=== PATIENT | female | born 1960 | race Hispanic/Latino ===

== ENCOUNTER 2019-11-08 13:10 | Emergency (ER) | payer SELFPAY ==
[2019-11-08] MEDS ORDERED: LEVALBUTEROL 1.25 MG/3 ML NEB ONE (14:51)
[2019-11-08] MEDS ORDERED: predniSONE 20 MG TAB ONE (14:51)
[2019-11-08] MEDS ORDERED: IBUPROFEN 400 MG TAB ONE (14:51)
[2019-11-08] MEDS ORDERED: IBUPROFEN 200 MG TAB PO ONE (14:51)
[2019-11-08] MEDS ORDERED: FAMOTIDINE 20 MG TAB ONE (14:52)
--- NOTE | 2019-11-08 15:13 | RAD REPORT ---
EXAM DESCRIPTION: RAD - Chest Single View - 11/08/2019 2:53 pm CLINICAL HISTORY: COPD;Cough COMPARISON: No comparisons TECHNIQUE: AP portable chest image was obtained 11/08/2019 2:53 pm . FINDINGS: Lungs are clear. Heart and vasculature are normal. No measurable pleural effusion and no p neumothorax. No acute bony abnormality seen. No acute aortic findings suspected. IMPRESSION: No acute cardiopulmonary process.
--- NOTE | 2019-11-08 16:57 | ER ---
Nurse's Notes [facility] Name: Jelena Schaeffer Age: 59 yrs Sex: Female : 1960 Arrival Date: 11/08/2019 Time: 13:13 Bed 19 Private MD: Diagnosis: Viral infection, unspecified;COPD Exacerbation;Cough Presentation: 11/07 13:26 Chief complaint: Patient states: Cough, congestion, sore throat, chest pain from jl7 coughing, MANTILLA and body aches x 2 days, fiance tested positive for the flu 2 days ago. Coronavirus screen: The patient has NOT traveled to a country currently being monitored by the [facility] within the last 14 days. Proceed with normal triage procedures. The patient has NOT had contact with any known and/or suspected case of coronavirus. Proceed with normal triage procedures. Ebola Screen: No symptoms or risks identified at this time. Initial Sepsis Screen: Does the patient meet any 2 criteria? HR > 90 bpm. No. Patient's initial sepsis screen is negative. Does the patient have a suspected source of infection? No. Patient's initial sepsis screen is negative. Risk Assessment: Do you want to hurt yourself or someone else? Patient reports no desire to harm self or others. Onset of symptoms was November 06, 2019. Care prior to arrival: None. 13:26 Method Of Arrival: Ambulatory [facility] 13:26 Acuity: ROBERTH 4 jl7 Triage Assessment: 13:31 General: Appears in no apparent distress. uncomfortable, Behavior is cooperative, jl7 anxious. Pain: Complains of pain in MANTILLA, whole body, sore throat Pain currently is 10 out of 10 on a pain scale. Quality of pain is described as aching. Neuro: Level of Consciousness is awake, alert, obeys commands, Oriented to person, place, time, situation. Cardiovascular: Patient's skin is warm and dry. Respiratory: Airway is patent Respiratory effort is even, unlabored, Respiratory pattern is regular, symmetrical. Derm: Skin is pink, warm \\T\\ dry. Historical: - Allergies: 13:31 Morphine; jl7 - Home Meds: 13:31 montelukast oral oral [Active]; Combivent Inhl [Active]; Albuterol Inhl [Active]; jl7 - PMHx: 13:31 COPD; jl7 - PSHx: 13:31 Appendectomy; Hysterectomy; jl7 - Immunization history:: Adult Immunizations not up to date. - Social history:: Smoking status: Patient denies any tobacco usage or history of. Screenin:40 Abuse screen: Denies threats or abuse. Nutritional screening: No deficits noted. rb1 Tuberculosis screening: No symptoms or risk factors identified. Fall Risk None identified. Assessment: 13:40 General: Appears uncomfortable, Behavior is anxious, Reports chills for fever for rb1 feeling ill for fatigue for. Pain: Complains of pain in head and bodyaches Pain does not radiate. Pain currently is 10 out of 10 on a pain scale. Quality of pain is described as aching. Neuro: Level of Consciousness is awake, alert, obeys commands, Oriented to person, place, time, situation, Reports headache. Cardiovascular: Capillary refill < 3 seconds is brisk in bilateral fingers. Respiratory: Reports shortness of breath cough that is pain with cough Airway is patent Respiratory effort is even, unlabored, Respiratory pattern is regular, symmetrical. GI: Reports nausea. : No signs and/or symptoms were reported regarding the genitourinary system. EENT: Reports pain when swallowing. Derm: Skin is pink, warm \\T\\ dry. 14:40 Reassessment: Patient appears in no apparent distress at this time. No changes from rb1 previously documented assessment. 15:38 Reassessment: Patient appears in no apparent distress at this time. Patient and/or rb1 family updated on plan of care and expected duration. Pain level reassessed. Patient is alert, oriented x 3, equal unlabored respirations, skin warm/dry/pink. 16:35 Reassessment: Patient appears in no apparent distress at this time. No changes from rb1 previously documented assessment. 17:28 Reassessment: When I went to discharge the pt. she requested Xopenex instead of rb1 Albuterol because she stated, "the Albuterol isn't working." Dr. España notified. Discharge pending due to waiting for Dr. España writing a different prescription. Vital Signs: 13:26 BP 142 / 84; Pulse 105; Resp 19; Temp 98.4; Pulse Ox 96% ; Weight 68.04 kg; Height 5 jl7 ft. 3 in. (160.02 cm); Pain 10/10; 14:01 BP 136 / 74; Pulse 86; Resp 18; Temp 99.2(TE); Pulse Ox 97% on R/A; mh5 15:00 BP 146 / 89; Pulse 81; Resp 19; Pulse Ox 100% on R/A; rb1 16:00 BP 132 / 77; Pulse 97; Resp 17; Pulse Ox 100% ; rb1 16:52 BP 114 / 76; Pulse 94; Resp 16; Temp 98.6(TE); Pulse Ox 96% ; mh5 17:40 BP 128 / 81; Pulse 87; Resp 17; Pulse Ox 99% on R/A; rb1 13:26 Body Mass Index 26.57 (68.04 kg, 160.02 cm) jl7 ED Course: 13:13 Patient arrived in ED. ag5 13:28 Igor España MD is Attending Physician. kdr 13:29 Triage completed. jl7 13:31 Arm band placed on right wrist. jl7 13:38 Chloe Flores, RN is Primary Nurse. rb1 13:40 Patient maintains SpO2 saturation greater than 95% on room air. rb1 14:03 Patient has correct armband on for positive identification. Bed in low position. Call [facility] light in reach. Side rails up X 1. Pulse ox on. NIBP on. 18:00 No provider procedures requiring assistance completed. Patient did not have IV access rb1 during this emergency room visit. Administered Medications: 14:42 Drug: Xopenex (3) 1.25 mg Route: Inhalation; rb1 14:42 Drug: predniSONE 60 mg Route: PO; rb1 15:10 Follow up: Response: No adverse reaction rb1 14:42 Drug: Pepcid 20 mg Route: PO; rb1 15:10 Follow up: Response: No adverse reaction rb1 14:42 Drug: Motrin 600 mg Route: PO; rb1 15:10 Follow up: Response: No adverse reaction rb1 Outcome: 16:56 Discharge ordered by . kdr 18:00 Patient left the ED. rb1 18:00 Discharged to home ambulatory. rb1 18:00 Condition: stable 18:00 Discharge instructions given to Signatures: Igor España MD MD kdr Chloe Flores, RN RN rb1 Ana Lentz [facility] Danyell Myrick RN RN 7 Karen Nieto 5 Corrections: (The following items were deleted from the chart) 18:13 18:11 Patient left the ED. rb1 rb1
--- NOTE | 2019-11-08 16:58 | EDPHYS ---
Physician Documentation [facility] Name: Jelena Schaeffer Age: 59 yrs Sex: Female : 1960 Arrival Date: 11/08/2019 Time: 13:13 Bed 19 Private MD: ED Physician Igor España HPI: 11/08 07:24 This 59 yrs old Female presents to ER via Ambulatory with complaints of Cough, kdr Chest Pain, Asthma Exacerbation. 07:24 The patient or guardian reports cough, that is intermittent, described as moderate, kdr difficulty breathing, flu symptoms, arthralgias, low-grade fever, myalgias, no appetite, hoarse voice. Onset: The symptoms/episode began/occurred gradually, 2 day(s) ago. Severity of symptoms: At their worst the symptoms were mild, in the emergency department the symptoms are unchanged. Modifying factors: The symptoms are alleviated by nothing, the symptoms are aggravated by talking. Associated signs and symptoms: Pertinent positives: chest pain, with cough, fever. The patient has not experienced similar symptoms in the past. The patient has not recently seen a physician. The patient is concerned about her possible exposure to the Flu a few days ago. Historical: - Allergies: 11/07 13:31 Morphine; jl7 - Home Meds: 13:31 montelukast oral oral [Active]; Combivent Inhl [Active]; Albuterol Inhl [Active]; jl7 - PMHx: 13:31 COPD; jl7 - PSHx: 13:31 Appendectomy; Hysterectomy; jl7 - Immunization history:: Adult Immunizations not up to date. - Social history:: Smoking status: Patient denies any tobacco usage or history of. ROS: 11/08 07:24 Constitutional: Negative for fever, chills, and weight loss, Eyes: Negative for injury, kdr pain, redness, and discharge, ENT: Negative for injury, pain, and discharge, Neck: Negative for injury, pain, and swelling, Cardiovascular: Negative for chest pain, palpitations, and edema, Abdomen/GI: Negative for abdominal pain, nausea, vomiting, diarrhea, and constipation, Back: Negative for injury and pain, : Negative for injury, bleeding, discharge, and swelling, MS/Extremity: Negative for injury and deformity, Skin: Negative for injury, rash, and discoloration, Neuro: Negative for headache, weakness, numbness, tingling, and seizure activity. Psych: Negative for depression, anxiety, suicide ideation, homicidal ideation, and hallucinations, Allergy/Immunology: Negative for hives, rash, and allergies, Endocrine: Negative for neck swelling, polydipsia, polyuria, polyphagia, and marked weight changes, Hematologic/Lymphatic: Negative for swollen nodes, abnormal bleeding, and unusual bruising. Respiratory: Positive for cough, with no reported sputum, wheezing, Negative for dyspnea on exertion, hemoptysis, orthopnea, pleurisy, sputum production. Exam: 07:24 Constitutional: This is a well developed, well nourished patient who is awake, alert, kdr and in no acute distress. Head/Face: Normocephalic, atraumatic. Eyes: Pupils equal round and reactive to light, extra-ocular motions intact. Lids and lashes normal. Conjunctiva and sclera are non-icteric and not injected. Cornea within normal limits. Periorbital areas with no swelling, redness, or edema. Neck: Trachea midline, no thyromegaly or masses palpated, and no cervical lymphadenopathy. Supple, full range of motion without nuchal rigidity, or vertebral point tenderness. No Meningismus. Chest/axilla: Normal chest wall appearance and motion. Nontender with no deformity. No lesions are appreciated. Cardiovascular: Regular rate and rhythm with a normal S1 and S2. No gallops, murmurs, or rubs. Normal PMI, no JVD. No pulse deficits. Abdomen/GI: Soft, non-tender, with normal bowel sounds. No distension or tympany. No guarding or rebound. No evidence of tenderness throughout. Back: No spinal tenderness. No costovertebral tenderness. Full range of motion. Skin: Warm, dry with normal turgor. Normal color with no rashes, no lesions, and no evidence of cellulitis. MS/ Extremity: Pulses equal, no cyanosis. Neurovascular intact. Full, normal range of motion. Neuro: Awake and alert, GCS 15, oriented to person, place, time, and situation. Cranial nerves II-XII grossly intact. Motor strength 5/5 in all extremities. Sensory grossly intact. Cerebellar exam normal. Normal gait. Psych: Awake, alert, with orientation to person, place and time. Behavior, mood, and affect are within normal limits. 07:24 Respiratory: mild respiratory distress is noted, Respirations: labored breathing, that is mild, Breath sounds: decreased breath sounds, wheezing: expiratory that is mild, is heard diffusely. Vital Signs: 11/07 13:26 BP 142 / 84; Pulse 105; Resp 19; Temp 98.4; Pulse Ox 96% ; Weight 68.04 kg; Height 5 7 ft. 3 in. (160.02 cm); Pain 10/10; 14:01 BP 136 / 74; Pulse 86; Resp 18; Temp 99.2(TE); Pulse Ox 97% on R/A; mh5 15:00 BP 146 / 89; Pulse 81; Resp 19; Pulse Ox 100% on R/A; rb1 16:00 BP 132 / 77; Pulse 97; Resp 17; Pulse Ox 100% ; rb1 16:52 BP 114 / 76; Pulse 94; Resp 16; Temp 98.6(TE); Pulse Ox 96% ; mh5 17:40 BP 128 / 81; Pulse 87; Resp 17; Pulse Ox 99% on R/A; rb1 13:26 Body Mass Index 26.57 (68.04 kg, 160.02 cm) [facility] MDM: 16:56 Patient medically screened. kdr 11/08 07:24 Data reviewed: vital signs, nurses notes, lab test result(s), radiologic studies. kdr Counseling: I had a detailed discussion with the patient and/or guardian regarding: the historical points, exam findings, and any diagnostic results supporting the discharge/admit diagnosis, lab results, radiology results, the need for outpatient follow up. 11/07 13:33 Order name: Flu [facility] 11/07 13:33 Order name: Strep [facility] 11/07 14:06 Order name: Influenza Screen (A ; Complete Time: 14:29 [facility] 11/07 14:06 Order name: Group A Streptococcus Rapid Sc; Complete Time: 14:29 [facility] 11/07 14:11 Order name: Influenza Screen (A [facility] 11/07 14:12 Order name: Group A Streptococcus Rapid Sc [facility] 11/07 14:29 Order name: CXR XRAY kdr 11/07 15:58 Order name: Throat Culture [facility] 11/07 17:44 Order name: RAD EDMS Administered Medications: 11/07 14:42 Drug: Xopenex (3) 1.25 mg Route: Inhalation; rb1 14:42 Drug: predniSONE 60 mg Route: PO; rb1 15:10 Follow up: Response: No adverse reaction rb1 14:42 Drug: Pepcid 20 mg Route: PO; rb1 15:10 Follow up: Response: No adverse reaction rb1 14:42 Drug: Motrin 600 mg Route: PO; rb1 15:10 Follow up: Response: No adverse reaction rb1 Disposition: 11/08/19 16:56 Discharged to Home. Impression: Viral infection, unspecified, COPD Exacerbation, Cough. - Condition is Stable. - Discharge Instructions: Cough, Adult, [id number], Viral Respiratory Infection, [id number]. - Prescriptions for Zithromax Z- Sajan 250 mg Oral Tablet - take 1 tablet by ORAL route as directed for 5 days Day 1 - take two (2) tablets one time. Day 2, 3, 4 , 5 take one (1) tablet once daily.; 6 tablet. Tamiflu 75 mg Oral Capsule - take 1 tablet by ORAL route every 12 hours for 5 days; 10 tablet. Prednisone 20 mg Oral Tablet - take 1 tablet by ORAL route once daily for 5 days; 5 tablet. Xopenex 1.25 mg/3 mL Inhalation Solution for Nebulization - inhale 3 unit by NEBULIZATION route every 6-8 hours As needed; 1 box. - Medication Reconciliation Form, Thank You Letter, Antibiotic Education form. - Follow up: Private Physician; When: 2 - 3 days; Reason: If symptoms return, Further diagnostic work-up, Recheck today's complaints, Continuance of care, Re-evaluation by your physician. - Problem is new. - Symptoms have improved. Signatures: Dispatcher [employer] EDHI Igor España MD MD [facility] Chloe Flores, RN RN rb1 Danyell Myrick RN RN jl7 Corrections: (The following items were deleted from the chart) 18:11 16:56 11/08/2019 16:56 Discharged to Home. Impression: Viral infection, unspecified; rb1 COPD Exacerbation; Cough. Condition is Stable. Forms are Medication Reconciliation Form, Thank You Letter, Antibiotic Education, Prescription Opioid Use. Follow up: Private Physician; When: 2 - 3 days; Reason: If symptoms return, Further diagnostic work-up, Recheck today's complaints, Continuance of care, Re-evaluation by your physician. Problem is new. Symptoms have improved. kdr
[2019-11-08 18:48] VITALS: BP 114/76; TEMP 98.6; O2SAT 96
== END 2019-11-08 18:11 | disposition home or self-care (01) ==
LOC: ER 13:10
DX: J44.1 Chronic obstructive pulmonary disease with (acute) exacerbation (principal); B34.9 Viral infection, unspecified; Z88.5 Allergy status to narcotic agent
CPT/HCPCS: 71045; 87070; 87081; 87804; 99284; J7512